=== PATIENT | male | born 1970 | race Caucasian/White ===

== ENCOUNTER 2019-02-15 17:50 | Emergency (ER) | payer SELFPAY ==
[2019-02-15 18:04] VITALS: BP 169/91
== END 2019-02-15 19:00 | disposition left against medical advice (07) ==
LOC: ER 17:50
DX: Z53.21 Procedure and treatment not carried out due to patient leaving prior to being seen by health care provider (principal); S61.219A Laceration without foreign body of unspecified finger without damage to nail, initial encounter; X58.XXXA Exposure to other specified factors, initial encounter

== ENCOUNTER 2020-03-28 14:04 | Emergency (ER) | payer SELFPAY ==
[2020-03-28 14:08] VITALS: BP 147/89
[2020-03-28] MEDS ORDERED: DEXAMETHASONE SOD PHOS INJ 10 MG/1 ML VIAL IM ONE (14:14)
[2020-03-28] MEDS ORDERED: HYDROCODONE/ACETAMINOPHEN 5-325 MG TABLET PO ONE (14:16)
--- NOTE | 2020-03-28 14:21 | ER Document Report ---
HPI - HPI Time Seen by Provider: 03/28/20 14:10 Pain Level: 5 Notes: 49 yr old male presents today with complaints of poison jaren exposure to his right arm and the legs after being exposed to poison oak 4 days ago. Patient states he is tried Benadryl and calamine without relief. Reports he has some itching to his right arm, upper axilla area, right leg. Has not tried any Benadryl today. Symptoms become progressively worse daily. Patient reports pain from itching is 5 out of 5. patient has a history of having acute outbreaks to poison jaren exposure. Denies fevers, chills, chest pain,palpitations, shortness of breath, dyspnea, nausea, vomiting, diarrhea, a bdominal pain, hematuria,blurred vision, double vision, loss of vision, speech changes, LH, dizziness, syncope, headaches, wheezing, ST, URI, neck pain, weakness, bowel or bladder dysfunction, saddle anesthesia, numbness or tingling in bilateral upper or lower extremities equally, muscle paralysis, weakness in bilateral upper or lower extremities equally. MEDICATIONS: I agree with the patient medications as charted by the RN. ALLERGIES: I agree with the allergies as charted by the RN. PAST MEDICAL HISTORY/PAST SURGICAL HISTORY: Reviewed and agree as charted by RN. SOCIAL HISTORY: Reviewed and agree as charted by RN. FAMILY HISTORY: No significant familial comorbid conditions directly related to patient complaint EXAM: Reviewed vital signs as charted by RN. REVIEW OF SYSTEMS:reviewed vital signs by RN CONSTITUTIONAL : Denies fever, chills, or sweats. Denies recent illness. EENT: Denies eye, ear, throat, or mouth pain or symptoms. Denies nasal or sinus congestion or discharge. Denies throat, tongue, or mouth swelling or difficulty swallowing. CARDIOVASCULAR: Denies chest pain. Denies palpitations or racing or irregular heart beat. Denies ankle edema. RESPIRATORY: Denies cough, cold, or chest congestion. Denies shortness of breath, difficulty breathing, or wheezing. GASTROINTESTINAL: Denies abdominal pain or distention. Denies nausea, vomiting, or diarrhea. Denies blood in vomitus, stools, or per rectum. Denies black, tarry stools. Denies constipation. GENITOURINARY: Denies difficulty urinating, painful urination, burning, frequency, blood in urine, or discharge. MUSCULOSKELETAL: Denies back or neck pain or stiffness. Denies joint pain or swelling. SKIN: reports rash. denies lesions or sores. HEMATOLOGIC : Denies easy bruising or bleeding. LYMPHATIC: Denies swollen, enlarged glands. NEUROLOGICAL: Denies confusion or altered mental status. Denies passing out or loss of consciousness. Denies dizziness or lightheadedness. Denies headache. Denies weakness or paralysis or loss of use of either side. Denies problems with gait or speech. Denies sensory loss, numbness, or tingling. Denies seizures. PSYCHIATRIC: Denies anxiety or stress. Denies depression, suicidal ideation, or homicidal ideation. ALL OTHER SYSTEMS REVIEWED AND NEGATIVE. Dictation was performed using [employer] voice recognition software PHYSICAL EXAMINATION: GENERAL: Well-appearing, well-nourished and in no acute distress. HEAD: Atraumatic, normocephalic. EYES: Pupils equal round and reactive to light, extraocular movements intact, sclera anicteric, conjunctiva are normal. ENT: Nares patent, oropharynx clear without exudates. Moist mucous membranes. NECK: Normal range of motion, supple without lymphadenopathy LUNGS: Breath sounds clear to auscultation bilaterally and equal. No wheezes rales or rhonchi. HEART: Regular rate and rhythm without murmurs ABDOMEN: Soft, nontender, nondistended abdomen. No guarding, no rebound. No masses appreciated. Musculoskeletal: Normal range of motion, no pitting or edema. No cyanosis. NEUROLOGICAL: Cranial nerves grossly intact. Normal speech, normal gait. Normal sensory, motor exams PSYCH: Normal mood, normal affect. SKIN: Warm, Dry, normal turgor, no rashes or lesions noted. Macular papular rash in a leaf-like pattern on the right forearm with small blisters. same findings to lateral aspect of right knee. Mild erythema, induration warm to touch to right forearm approximately 0.5 cm around blistering rash. Radial pulses +2 bilaterally and equally. Filter Press Tender + 2 BUE equally. Negative kanavels sign. No vascular compromise. Motor and sensory function of ulnar, radial, medial nerves intact bilaterally and equally. - CONSTITUTIONAL Constitutional: DENIES: Fever, Chills - REPRODUCTIVE Reproductive: DENIES: : - MUSCULOSKELETAL Musculoskeletal: DENIES: Extremity pain Past Medical History - General Information source: Patient - Social History Smoking Status: Current Every Day Smoker Chew tobacco use (# tins/day): No Frequency of alcohol use: Heavy Drug Abuse: None Family History: Reviewed & Not Pertinent Patient has homicidal ideation: No Past Surgical History: Reports: Hx Orthopedic Surgery - bilat ankle - Immunizations Hx Diphtheria, Pertussis, Tetanus Vaccination: Yes Vertical Provider Document - CONSTITUTIONAL Agree With Documented VS: Yes Exam Limitations: No Limitations General Appearance: WD/WN - INFECTION CONTROL TRAVEL OUTSIDE OF THE [place] IN LAST 30 DAYS: No Course - Re-evaluation Re-evalutation: 03/28/20 14:32 Afebrile vital stable no distress. Nurses notes reviewed. Patient given 10 mg of Decadron IM. Advised to take prednisone, antibiotics and ointment cream as directed. Advised to not itch rash. Advised take cold showers. Follow-up with primary care provider in the next 24 to 48 hours. Please avoid scratching. After performing a Medical Screening Examination, I estimate there is LOW risk for any life threatening rash. At this time the patient looks extremely well and there are no signs of systemic infection, however this may change at any time and the rash may change. I have reevaluated this patient multiple times and no significant life threatening changes are noted. The patient and I have discussed the diagnosis and risks, and we agree with discharging home with close follow-up with the understanding that symptoms and presentations can change. We also discussed returning to the Emergency Department immediately if new or worsening symptoms occur. We have discussed the symptoms which are most concerning (e.g., changing or worsening pain, fever, numbness, weakness, cool or painful digits) that necessitate immediate return. - Vital Signs Vital signs: Temp Pulse Resp BP Pulse Ox 98.5 F 107 H 16 147/89 H 98 03/28/20 14:07 03/28/20 14:07 03/28/20 14:07 03/28/20 14:07 03/28/20 14:07 Discharge - Discharge Clinical Impression: Poison jaren dermatitis Condition: Stable Disposition: HOME, SELF-CARE Instructions: Corticosteroid Medication ([facility]), Contact Dermatitis ([facility]), Topical Steroid Cream or Ointment ([facility]), Clindamycin ([facility]) Additional Instructions: Your being seen today for poison jaren. It appears that some of your rash turned in to a little bit of a cellulitis we will treat you with antibiotics along with steroids. You were given a shot of Decadron to help with the inflammation. Return for any difficulty breathing, vomiting, passing out, or any other symptoms that are worrisome to you. You need to take the antibiotics as prescribed. Do not stop even if the rash goes away until you have completed all the antibiotics. The area of redness was traced out here in the emergency department with a marking pen. You need to return to emergency department if the redness spreads outside of this area by more than 2 cm in any direction. You should also return if you develop fevers with temperature greater than 101, persistent vomiting, worsening pain, or have any other symptoms that are concerning to you. Take [id number] Tylenol and ibuprofen during control as needed Return immediately for any new or worsening symptoms. Follow up with primary care provider, call tomorrow to make followup appointment. Prescriptions: Triamcinolone Acetonide [Aristocort 0.1% Cream] 1 applic TP BID #1 tub Clindamycin HCl 300 mg PO Q6H #28 capsule Prednisone [Deltasone 20 mg Tablet] 3 tab PO DAILY 5 Days #15 tablet Forms: Return to Work Referrals: BRIAN MONROY [Primary Care Provider] - Follow up as needed ANKIT TOMAS MD [ACTIVE STAFF] - Follow up as needed
== END 2020-03-28 14:23 | disposition home or self-care (01) ==
LOC: ER 14:04
DX: L23.7 Allergic contact dermatitis due to plants, except food (principal); F17.200 Nicotine dependence, unspecified, uncomplicated
CPT/HCPCS: 99284; 96372; J1100

== ENCOUNTER 2020-04-05 16:29 | Observation (INO) | payer SELFPAY ==
[2020-04-05] MEDS ORDERED: KETOROLAC TROMETHAMINE INJ/PF 30 MG/1 ML SDV IV ONE (17:34)
[2020-04-05] MEDS ORDERED: DEXAMETHASONE SOD PHOS INJ 10 MG/1 ML VIAL IV ONE (17:34)
--- NOTE | 2020-04-05 17:52 | ER Document Report ---
ED Skin Rash/Insect Bite/Abscs - General Chief Complaint: Skin Problem Stated Complaint: SKIN ISSUE Time Seen by Provider: 04/05/20 17:34 Notes: Patient is a 49-year-old male who presents emergency department with a chief complaint of rash. Patient reports he was seen here last week and diagnosed with poison anca. Patient reports 3 days prior to arriving to the emergency department he was exposed to poison anca while working in the yard. Patient reports that he was placed on steroids, a steroid cream which only lasted 2 days and clindamycin. He states since then the rash has continued to spread throughout his torso, underneath the arms, and groin area. Patient reports only a small spot to his right knee. Patient denies fever but does report some chills. Patient reports intense itching. TRAVEL OUTSIDE OF THE [place] IN LAST 30 DAYS: No - Related Data Allergies/Adverse Reactions: ampicillin [Ampicillin] Allergy (Verified 04/05/20 17:20) Past Medical History - General Information source: Patient - Social History Smoking Status: Current Every Day Smoker Chew tobacco use (# tins/day): No Frequency of alcohol use: None Drug Abuse: None Lives with: Family Family History: Reviewed & Not Pertinent Patient has homicidal ideation: No - Past Medical History Cardiac Medical History: Reports: None Pulmonary Medical History: Reports: None EENT Medical History: Reports: None Neurological Medical History: Reports: None Endocrine Medical History: Reports: None Renal/ Medical History: Reports: None Malignancy Medical History: Reports None GI Medical History: Reports: None Musculoskeletal Medical History: Reports None Skin Medical History: Reports None Psychiatric Medical History: Reports: None Traumatic Medical History: Reports: None Infectious Medical History: Reports: None Past Surgical History: Reports: Hx Orthopedic Surgery - bilat ankle - Immunizations Hx Diphtheria, Pertussis, Tetanus Vaccination: Yes Review of Systems - Review of Systems Constitutional: No symptoms reported EENT: No symptoms reported Cardiovascular: No symptoms reported Respiratory: No symptoms reported Gastrointestinal: No symptoms reported Genitourinary: No symptoms reported Male Genitourinary: No symptoms reported Musculoskeletal: No symptoms reported Skin: See HPI Hematologic/Lymphatic: No symptoms reported Neurological/Psychological: No symptoms reported Physical Exam - Vital signs Vitals: Temp Pulse Resp BP Pulse Ox 97.4 F 93 20 139/82 H 99 04/05/20 16:38 04/05/20 16:38 04/05/20 16:38 04/05/20 16:38 04/05/20 16:38 Interpretation: Normal - Notes Notes: GENERAL: Well-appearing, well-nourished and in no acute distress. HEAD: Atraumatic, normocephalic. EYES: Pupils equal round and reactive to light, extraocular movements intact, sclera anicteric, conjunctiva are normal. ENT: Moist mucous membranes. NECK: Normal range of motion, supple without lymphadenopathy or JVD. LUNGS: Breath sounds clear to auscultation bilaterally and equal. No wheezes rales or rhonchi. HEART: Regular rate and rhythm without murmurs, rubs or gallops. ABDOMEN: Soft, nontender, normoactive bowel sounds. No guarding, no rebound. No masses appreciated. BACK: No cervical, thoracic, lumbar midline tenderness. No saddle anesthesia, normal distal neurovascular exam. GENITOURINARY: Deferred. EXTREMITIES: Normal range of motion, no pitting or edema. No clubbing or cyanosis. NEUROLOGICAL: Cranial nerves II through XII grossly intact. Normal speech, normal gait. PSYCH: Normal mood, normal affect. SKIN: Patient has scattered vesicles, cracked skin, erythema to the torso. Underneath bilateral arms (axilla) patient skin appears raw and irritated, appears moist. No odor. Course - Re-evaluation Re-evalutation: 04/05/20 17:51 I do suspect that the severity of the dermatitis will need a longer course of steroids. I will initiate an IV, do basic labs, give pain medication. Will reevaluate. Patient CBC showed an elevated white count of 25. Lab does have to, and redraw the CMP. I did order blood cultures. The charge nurse was made aware that the patient will be seen by a provider once placed in a room versus staying in triage. - Vital Signs Vital signs: Temp Pulse Resp BP Pulse Ox 97.4 F 93 20 139/82 H 99 04/05/20 16:38 04/05/20 16:38 04/05/20 16:38 04/05/20 16:38 04/05/20 16:38 - Laboratory Result Diagrams: 04/05/20 17:45 04/05/20 17:45 Laboratory results interpreted by me: 04/05/20 17:45 WBC 25.7 H RBC 5.88 H Hgb 17.8 H Hct 52.9 H RDW 14.3 H Plt Count 479 H Band Neutrophils % 1 L Lymphocytes % (Manual) 10 L Eosinophils % (Manual) 9 H Abs Neuts (Manual) 19.5 H Absolute Eos (Manual) 2.3 H Discharge - Discharge Clinical Impression: Dermatitis Additional Instructions: Poison Anca Poison anca and poison oak can cause an itchy rash. This is called contact dermatitis. It's an allergy to an oil in the plant's leaves. The oil can be spread from clothing to skin, from pets to humans, or from one spot on the body to another. Washing thoroughly with soap immediately after exposure can prevent the rash. (Clothing should be washed as well.) If the oil is not removed, an itchy rash develops a few days after the exposure. Blisters may develop. Two to three weeks may be required for healing. Generally, treatment consists of: (1) an immediate thorough washing with soap to remove the oil, (2) application of a cortisone cream, and (3) antihistamines for itching. If the reaction is particularly severe, oral cortisone medicine may be required. If there are oozing areas, these can be soaked in epsom salts or Alvin's solution. Call the doctor if the rash worsens despite treatment, or if signs of infection occur such as spreading redness, red streaks, swollen glands, swelling, or fever.
[2020-04-05 18:11] LABS: HEMATOCRIT 52.9 % (37.9-51.0); HEMOGLOBIN 17.8 g/dL (13.5-17.0); MEAN CORPUSCULAR HEMOGLOBIN 30.3 pg (27.0-33.4); MEAN CORPUSCULAR HGB CONC 33.7 g/dL (32.0-36.0); MEAN CORPUSCULAR VOLUME 90 fl (80-97); PLATELET COUNT 479 10^3/uL (150-450); RED BLOOD COUNT 5.88 10^6/uL (4.35-5.55); RED CELL DISTRIBUTION WIDTH 14.3 % (11.5-14.0); WHITE BLOOD COUNT 25.7 10^3/uL (4.0-10.5)
[2020-04-05 18:59] LABS: ABSOLUTE LYMPHOCYTES# (MANUAL) 2.6 10^3/uL (0.5-4.7); ABSOLUTE MONOCYTES # (MANUAL) 1.3 10^3/uL (0.1-1.4); BAND NEUTROPHILS % (MANUAL) 1 % (3-5); BASOPHILS % (MANUAL) 0 % (0-2); EOSINOPHILS % (MANUAL) 9 % (0-6); LYMPHOCYTES % (MANUAL) 10 % (13-45); MONOCYTES % (MANUAL) 5 % (3-13); PLATELET COMMENT INCREASED; POIKILOCYTOSIS SLIGHT; SEGMENTED NEUTROPHILS % (MAN) 75 % (42-78); TEAR DROP CELLS SLIGHT; TOTAL CELLS COUNTED 100
[2020-04-05 20:04] LABS: ALBUMIN 3.8 g/dL (3.5-5.0); ALKALINE PHOSPHATASE 97 U/L (38-126); ANION GAP 12 (5-19); ASPARTATE AMINO TRANSFERASE 20 U/L (17-59); BILIRUBIN,DIRECT 0.2 mg/dL (0.0-0.4); BILIRUBIN,TOTAL 1.1 mg/dL (0.2-1.3); BLOOD UREA NITROGEN 18 mg/dL (7-20); CARBON DIOXIDE 24 mmol/L (22-30); CHLORIDE 100 mmol/L (98-107); GLUCOSE 128 mg/dL (75-110); POTASSIUM 3.9 mmol/L (3.6-5.0)
--- NOTE | 2020-04-05 20:28 | ER Document Report ---
ED Medical Screen (RME) - General Chief Complaint: Skin Problem Stated Complaint: SKIN ISSUE Time Seen by Provider: 04/05/20 17:34 Notes: Patient is a 49-year-old male who presents emergency department with a chief c omplaint of rash. Patient reports he was seen here last week and diagnosed with poison anca. Patient reports 3 days prior to arriving to the emergency department he was exposed to poison anca while working in the yard. Patient reports that he was placed on steroids, a steroid cream which only lasted 2 days and clindamycin. He states since then the rash has continued to spread throughout his torso, underneath the arms, and groin area. Patient reports only a small spot to his right knee. Patient denies fever but does report some chills. Patient reports intense itching. TRAVEL OUTSIDE OF THE [place] IN LAST 30 DAYS: No - Related Data Allergies/Adverse Reactions: ampicillin [Ampicillin] Allergy (Verified 04/05/20 17:20) Past Medical History - Social History Chew tobacco use (# tins/day): No Frequency of alcohol use: None Drug Abuse: None Past Surgical History: Reports: Hx Orthopedic Surgery - bilat ankle - Immunizations Hx Diphtheria, Pertussis, Tetanus Vaccination: Yes Physical Exam - Vital signs Vitals: Temp Pulse Resp BP Pulse Ox 97.4 F 93 20 139/82 H 99 04/05/20 16:38 04/05/20 16:38 04/05/20 16:38 04/05/20 16:38 04/05/20 16:38 Course - Re-evaluation Re-evalutation: 04/05/20 20:27 Patient has an assortment of scattered dry areas, erythema, dried pustules on the torso. Patient has significant tenderness and erythema underneath bilateral axillas. Due to the extent of the patient's rash I did order basic labs in triage. It was noted that patient had an elevated white count. He was placed in a private room to be seen by a provider. I have greeted and performed a rapid initial assessment of this patient. A comprehensive ED assessment and evaluation of the patient, analysis of test results and completion of the medical decision making process will be conducted by additional ED providers. - Vital Signs Vital signs: Temp Pulse Resp BP Pulse Ox 97.4 F 93 20 139/82 H 99 04/05/20 16:38 04/05/20 16:38 04/05/20 16:38 04/05/20 16:38 04/05/20 16:38 - Laboratory Result Diagrams: 04/05/20 17:45 04/05/20 19:25 Laboratory results interpreted by me: 04/05/20 04/05/20 17:45 19:25 WBC 25.7 H RBC 5.88 H Hgb 17.8 H Hct 52.9 H RDW 14.3 H Plt Count 479 H Band Neutrophils % 1 L Lymphocytes % (Manual) 10 L Eosinophils % (Manual) 9 H Abs Neuts (Manual) 19.5 H Absolute Eos (Manual) 2.3 H Sodium 135.6 L Glucose 128 H Total Protein 6.0 L Doctor's Discharge - Discharge Clinical Impression: Dermatitis Additional Instructions: Poison Anca Poison anca and poison oak can cause an itchy rash. This is called contact dermatitis. It's an allergy to an oil in the plant's leaves. The oil can be spread from clothing to skin, from pets to humans, or from one spot on the body to another. Washing thoroughly with soap immediately after exposure can prevent the rash. (Clothing should be washed as well.) If the oil is not removed, an itchy rash develops a few days after the exposure. Blisters may develop. Two to three weeks may be required for healing. Generally, treatment consists of: (1) an immediate thorough washing with soap to remove the oil, (2) application of a cortisone cream, and (3) antihistamines for itching. If the reaction is particularly severe, oral cortisone medicine may be required. If there are oozing areas, these can be soaked in epsom salts or Alvin's solution. Call the doctor if the rash worsens despite treatment, or if signs of infection occur such as spreading redness, red streaks, swollen glands, swelling, or fever.
[2020-04-05] MEDS ORDERED: DIPHENHYDRAMINE HCL 50 MG/ML VIAL IV ONE (21:11)
[2020-04-05] MEDS ORDERED: DOXEPIN HCL 25 MG CAPSULE PO ONE ×2 (21:33→23:31)
[2020-04-05] MEDS ORDERED: FLUCONAZOLE 100 MG TABLET PO ONE (21:34)
--- NOTE | 2020-04-05 21:40 | ER Document Report ---
ED General - General Chief Complaint: Skin Problem Stated Complaint: SKIN ISSUE Time Seen by Provider: 04/05/20 17:34 Notes: 49-year-old male no significant past medical history presents with approximately 1 week of severe worsening erythematous pruritic painful rash over torso, bilateral arms, face and right knee. Patient was working outside in an area that had known poison anca prior to symptom onset. Patient started on low-dose of p.o. steroids which he completed without relief. No improvement with topical steroids. Patient denies any fever, dizziness, vomiting, discharge, change in vision, diabetes, HIV, immunocompromise history TRAVEL OUTSIDE OF THE [place] IN LAST 30 DAYS: No - Related Data Allergies/Adverse Reactions: ampicillin [Ampicillin] Allergy (Verified 04/05/20 17:20) Past Medical History - General Information source: Patient - Social History Smoking Status: Current Every Day Smoker Chew tobacco use (# tins/day): No Frequency of alcohol use: None Drug Abuse: None Family History: Reviewed & Not Pertinent Patient has homicidal ideation: No Past Surgical History: Reports: Hx Orthopedic Surgery - bilat ankle - Immunizations Hx Diphtheria, Pertussis, Tetanus Vaccination: Yes Review of Systems - Review of Systems Notes: REVIEW OF SYSTEMS: CONSTITUTIONAL : Denies fever, chills, or sweats. EENT: Denies recent cold/sinus symptoms, denies throat pain CARDIOVASCULAR: Denies chest pain, SARAH RESPIRATORY: Denies cough, denies shortness of breath. GASTROINTESTINAL: Denies abdominal pain, nausea/vomiting. GENITOURINARY: Denies difficulty urinating, painful urination. MUSCULOSKELETAL: Denies neck pain, back pain. SKIN: + rash or skin lesions. HEMATOLOGIC : Denies easy bruising or bleeding. LYMPHATIC: Denies swollen, enlarged glands. NEUROLOGICAL: Denies headache, denies change in gait. PSYCHIATRIC: Denies anxiety or stress or depression. Physical Exam - Vital signs Vitals: Temp Pulse Resp BP Pulse Ox 97.4 F 93 20 139/82 H 99 04/05/20 16:38 04/05/20 16:38 04/05/20 16:38 04/05/20 16:38 04/05/20 16:38 - Notes Notes: PHYSICAL EXAMINATION: GENERAL: Well-appearing, well-nourished, talkative pleasant middle-aged man appearing stated age appearing uncomfortable from rash pruritus but nontoxic appearance and in no acute distress HEAD: Atraumatic, normocephalic. EYES: Pupils equal round and appropriate constriction, sclera anicteric, conjunctiva are normal. ENT: nares patent, moist mucous membranes. NECK: Normal range of motion, supple without lymphadenopathy LUNGS: Breath sounds clear to auscultation bilaterally and equal. No wheezes rales or rhonchi. HEART: Regular rate and rhythm without murmurs ABDOMEN: Soft, nontender, no guarding, no masses, no CVAT EXTREMITIES: Normal range of motion, no pitting or edema. No cyanosis. NEUROLOGICAL: Awake, alert, conversing appropriately, moves all extremities s pontaneously. PSYCH: Normal mood, normal affect. SKIN: Warm, Dry, normal turgor, confluent erythematous blanching rash over most of lower abdomen bilaterally sparing intertriginous area below pannus with macular rash with areas of confluence over bilateral arms. No vesicles, no discharge, no purulence. Small areas of the rash appear to be mildly edematous with increased warmth compared to other areas of rash including over left axilla and the lateral right lower abdomen. Rash also mildly involving medial proximal thigh bilaterally sparing groin area, this area of rash has excessive moisture but no discharge. Some areas of the mesh have dried and appearing mildly scaly and flaky with no impetiginous appearance. Mild erythema of bilateral lower forehead and upper cheeks without discharge, normal conjunctiva, no edema in this area. Flaky erythematous dry blanching rash on right knee. Course - Re-evaluation Re-evalutation: 04/05/20 21:49 Rash consistent with severe atopic dermatitis from poison anca/oak/sumac, but some areas with excessive moisture. But they could have fungal superinfection and small areas appear equivocally cellulitic. Patient had labs drawn in triage which showed leukocytosis with small bands and neutrophil predominance but CBC is hemoconcentrated. This could represent severe atopic dermatitis response or cellulitis, but likely exaggerated by mild dehydration. Patient's vitals are normal, patient is very well-appearing, no signs of disseminated shingles, SJS, or TEN. Given the patient's indolent course and general well appearance without systemic symptoms or signs of organ dysfunction less likely eczema herpeticum, but will defer this to inpatient team to reevaluate if clinical picture should change. Patient appropriate for inpatient observation given extent of rash and mild dehydration. 04/05/20 22:27 Patient is a surgical history of appendectomy approximately 43 years ago and 2-3 left inguinal hernia repair surgeries greater than 10 years ago, current 1 pack/day smoker times 20 years, no alcohol or other drug use, mother had htn and dm and father had htn. pt accepted to observation by Dr. Meade. - Vital Signs Vital signs: Temp Pulse Resp BP Pulse Ox 98.2 F 63 18 140/71 H 100 04/05/20 22:00 04/05/20 22:00 04/05/20 22:00 04/05/20 22:00 04/05/20 22:00 - Laboratory Result Diagrams: 04/05/20 17:45 04/05/20 19:25 Laboratory results interpreted by me: 04/05/20 04/05/20 17:45 19:25 WBC 25.7 H RBC 5.88 H Hgb 17.8 H Hct 52.9 H RDW 14.3 H Plt Count 479 H Band Neutrophils % 1 L Lymphocytes % (Manual) 10 L Eosinophils % (Manual) 9 H Abs Neuts (Manual) 19.5 H Absolute Eos (Manual) 2.3 H Sodium 135.6 L Glucose 128 H Total Protein 6.0 L Discharge - Discharge Clinical Impression: Dermatitis, Dehydration Cellulitis Qualifiers: Site of cellulitis: unspecified site Qualified Code(s): L03.90 - Cellulitis, unspecified Disposition: ADMITTED OBSERVATION Admitting Provider: Deshaun (Hospitalist) Unit Admitted: Medical Floor Additional Instructions: Poison Anca Poison anca and poison oak can cause an itchy rash. This is called contact dermatitis. It's an allergy to an oil in the plant's leaves. The oil can be spread from clothing to skin, from pets to humans, or from one spot on the body to another. Washing thoroughly with soap immediately after exposure can prevent the rash. (Clothing should be washed as well.) If the oil is not removed, an itchy rash develops a few days after the exposure. Blisters may develop. Two to three weeks may be required for healing. Generally, treatment consists of: (1) an immediate thorough washing with soap to remove the oil, (2) application of a cortisone cream, and (3) antihistamines for itching. If the reaction is particularly severe, oral cortisone medicine may be required. If there are oozing areas, these can be soaked in epsom salts or Alvin's solution. Call the doctor if the rash worsens despite treatment, or if signs of infection occur such as spreading redness, red streaks, swollen glands, swelling, or fever.
[2020-04-05] MEDS: CLINDAMYCIN 600 MG/D5W RTU 600 MG/50 ML RTUPB IV SCH (22:01)
[2020-04-05] MEDS: NORMAL SALINE 1000 ML 1,000 ML IV PRN (22:01)
[2020-04-05 23:18] LABS: HEMATOCRIT 46.9 % (37.9-51.0); MEAN CORPUSCULAR HEMOGLOBIN 30.3 pg (27.0-33.4); MEAN CORPUSCULAR HGB CONC 34.2 g/dL (32.0-36.0); MEAN CORPUSCULAR VOLUME 89 fl (80-97); PLATELET COUNT 426 10^3/uL (150-450); RED BLOOD COUNT 5.29 10^6/uL (4.35-5.55)
[2020-04-05] MEDS ORDERED: MAG HYDROX/AL HYDROX/SIMETH SUSP 30 ML UDCUP PO PRN (23:25)
[2020-04-05] MEDS ORDERED: PROMETHAZINE HCL INJ 25 MG/1 ML VIAL IV PRN (23:25)
[2020-04-05] MEDS ORDERED: MAGNESIUM HYDROXIDE SUSP 30 ML UDCUP PO PRN (23:25)
[2020-04-05] MEDS ORDERED: ACETAMINOPHEN 325 MG TABLET PO PRN (23:28)
[2020-04-05] MEDS ORDERED: HYDRALAZINE HCL INJ/PF 20 MG/1 ML SDV IV PRN (23:28)
[2020-04-05] MEDS ORDERED: MORPHINE SULFATE 10 MG/ML INJ IV PRN (23:28)
[2020-04-05] MEDS ORDERED: GUAIFENESIN SYRP 200 MG/10 ML UDC PO PRN (23:28)
[2020-04-05] MEDS ORDERED: MELATONIN 5 MG TABLET PO PRN (23:28)
[2020-04-05] MEDS ORDERED: LORAZEPAM INJ 2 MG/1 ML VIAL IV PRN (23:28)
[2020-04-05] MEDS ORDERED: NICOTINE 21 MG/24 HR PATCH.TD24 TD PRN (23:28)
[2020-04-05 23:38] LABS: ABSOLUTE LYMPHOCYTES# (MANUAL) 0.6 10^3/uL (0.5-4.7); ABSOLUTE MONOCYTES # (MANUAL) 0.6 10^3/uL (0.1-1.4); BASOPHILS % (MANUAL) 0 % (0-2); EOSINOPHILS % (MANUAL) 8 % (0-6); LYMPHOCYTES % (MANUAL) 3 % (13-45); MONOCYTES % (MANUAL) 3 % (3-13); SEGMENTED NEUTROPHILS % (MAN) 86 % (42-78); TOTAL CELLS COUNTED 100
[2020-04-05 23:42] LABS: ANISOCYTOSIS SLIGHT; PLATELET COMMENT ADEQUATE; TEAR DROP CELLS SLIGHT
[2020-04-05 23:43] LABS: POIKILOCYTOSIS SLIGHT
[2020-04-05] MEDS ORDERED: FAMOTIDINE 20 MG TABLET PO ONE (23:45)
[2020-04-06] MEDS: NORMAL SALINE 1000 ML 1,000 ML IV PRN (00:20)
[2020-04-06] MEDS: DEXAMETHASONE SOD PHOSPHATE INJ 4 MG/1 ML VIAL IV SCH ×2 (02:18→09:47)
[2020-04-06] MEDS: DEXTROSE 5%-LACTATED RINGERS 1,000 ML IV PRN ×2 (02:20→08:17)
[2020-04-06 04:30] LABS: HEMATOCRIT 42.3 % (37.9-51.0); HEMOGLOBIN 14.6 g/dL (13.5-17.0); MEAN CORPUSCULAR HEMOGLOBIN 30.5 pg (27.0-33.4); MEAN CORPUSCULAR HGB CONC 34.5 g/dL (32.0-36.0); MEAN CORPUSCULAR VOLUME 89 fl (80-97); PLATELET COUNT 364 10^3/uL (150-450); RED BLOOD COUNT 4.78 10^6/uL (4.35-5.55); WHITE BLOOD COUNT 12.5 10^3/uL (4.0-10.5)
[2020-04-06 04:48] LABS: ANION GAP 6 (5-19); BLOOD UREA NITROGEN 13 mg/dL (7-20); CALCIUM 8.4 mg/dL (8.4-10.2); CARBON DIOXIDE 21 mmol/L (22-30); CHLORIDE 109 mmol/L (98-107); GLUCOSE 198 mg/dL (75-110)
[2020-04-06 04:54] LABS: POTASSIUM 4.9 mmol/L (3.6-5.0)
[2020-04-06] MEDS: HEPARIN SOD (PORCINE) 5,000 UNIT/ML 1 ML VIAL SUBCUT SCH ×3 (05:17→21:10)
[2020-04-06] MEDS: CLINDAMYCIN 600 MG/D5W RTU 600 MG/50 ML RTUPB IV SCH ×2 (05:18→13:07)
--- NOTE | 2020-04-06 06:28 | PDOC H&P ---
History of Present Illness Admission Date/PCP: 04/05/20 22:35 No local PCP Patient complains of: Rash History of Present Illness: YOVANNY LÓPEZ is a 49 year old male who presented emergency room with a one- week history of a poison jaren rash. 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 The rash is extremely pruritic and is not improving despite treatment with oral and topical steroid preparations which he is received on previous visits. He denies other associated or accompanying signs and symptoms. He denies prior similar episodes. He has not identified any additional aggravating or ameliorating factors for his rash. In the emergency room he was noted to have an extensive rash of atopic dermatitis with areas of weeping and crusting. He was further noted to have a leukocytosis of 25,000 with 1% bands that was so concerning to the emergency room physician that she demanded that he be admitted for observation. Patient was subsequently admitted to observation status for further evaluation and treatment. Past Medical History Cardiac Medical History: Denies: Atrial Fibrillation, Coronary Artery Disease, DVT, Myocardial Infarction, Hyperlipidema, Hypertension, Pulmonary Embolism Pulmonary Medical History: Denies: Asthma, Chronic Obstructive Pulmonary Disease (COPD) EENT Medical History: Denies: Cataracts, Ears - Hearing aids Neurological Medical History: Denies: Hemorrhagic CVA, Ischemic CVA, Seizures Endocrine Medical History: Denies: Diabetes Mellitus Type 1, Diabetes Mellitus Type 2, Hyperthyroidism, Hypothyroidism, Obesity Renal/ Medical History: Denies: Chronic Kidney Disease, Nephrolithiasis Malignancy Medical History: Reports: None GI Medical History: Denies: Cirrhosis, Crohn's Disease, Gastroesophageal Reflux Disease, Hepatitis, Peptic Ulcer Disease, Ulcerative Colitis Musculoskeltal Medical History: Denies: Arthritis, Fibromyalgia, Gout Skin Medical History: Denies: Eczema, Psoriasis Psychiatric Medical History: Reports: Tobacco Dependency Denies: Alcohol Dependency, Substance Abuse Traumatic Medical History: Reports: None Hematology: Denies: Anemia, Bleeding Tendencies Infectious Medical History: Reports: None Past Surgical History Past Surgical History: Reports: Orthopedic Surgery - bilat ankle Social History Information Source: Patient Lives with: Homeless Smoking Status: Current Every Day Smoker Electronic Cigarette use?: No Frequency of Alcohol Use: None Hx Recreational Drug Use: No Drugs: None Hx Prescription Drug Abuse: No - Advance Directive Resuscitation Status: Full Code Surrogate healthcare decision maker:: Delfin Barba Family History Family History: DM, Hypertension. denies: CAD, Malignancy Parental Family History Reviewed: Yes Children Family History Reviewed: No Sibling(s) Family History Reviewed.: Yes Medication/Allergy Home Medications: Clindamycin HCl 300 mg PO Q6H #28 capsule 03/28/20 Prednisone [Deltasone 20 mg Tablet] 3 tab PO DAILY 5 Days #15 tablet 03/28/20 Triamcinolone Acetonide [Aristocort 0.1% Cream] 1 applic TP BID #1 tub 03/28/20 Allergies/Adverse Reactions: ampicillin [Ampicillin] Allergy (Verified 04/05/20 17:20) Review of Systems Constitutional: ABSENT: chills, fever(s) Eyes: ABSENT: visual disturbances, other - Eye pain Ears: ABSENT: hearing changes, other - UTI Nose, Mouth, and Throat: ABSENT: headache(s), sore throat Cardiovascular: ABSENT: chest pain, palpitations Respiratory: ABSENT: cough, dyspnea Gastrointestinal: ABSENT: abdominal pain, constipation, diarrhea, nausea, vomiting Genitourinary: ABSENT: dysuria, hematuria Musculoskeletal: ABSENT: back pain, joint swelling Integumentary: ABSENT: pruritus, rash Neurological: ABSENT: confusion, convulsions, focal weakness, memory loss, syncope Psychiatric: ABSENT: anxiety, depression Endocrine: ABSENT: cold intolerance, heat intolerance Hematologic/Lymphatic: ABSENT: easy bleeding, easy bruising Allergic/Immunologic: ABSENT: seasonal rhinorrhea Physical Exam Vital Signs: Temp Pulse Resp BP Pulse Ox 98.2 F 63 18 140/71 H 100 04/05/20 22:00 04/05/20 22:00 04/05/20 22:00 04/05/20 22:00 04/05/20 22:00 Intake & Output 04/03/20 04/04/20 04/05/20 23:59 23:59 23:59 Weight 104.2 kg General appearance: PRESENT: cooperative, disheveled, other - Moderate distress and due to pruritus Head exam: PRESENT: atraumatic, normocephalic Eye exam: PRESENT: conjunctiva pink. ABSENT: conjunctival injection, scleral icterus Ear exam: PRESENT: normal external ear exam. ABSENT: bleeding, drainage Mouth exam: PRESENT: dry mucosa, neck supple Neck exam: ABSENT: thyromegaly, tracheal deviation Respiratory exam: PRESENT: clear to auscultation henrry, symmetrical, unlabored Cardiovascular exam: PRESENT: RRR. ABSENT: clicks, gallop, rubs Pulses: PRESENT: normal radial pulses, normal dorsalis pedis pul Vascular exam: PRESENT: normal capillary refill. ABSENT: pallor GI/Abdominal exam: PRESENT: normal bowel sounds, soft. ABSENT: tenderness Rectal exam: PRESENT: deferred Extremities exam: ABSENT: joint swelling, pedal edema Musculoskeletal exam: ABSENT: deformity, dislocation Neurological exam: PRESENT: alert, oriented to person, oriented to place, oriented to time, oriented to situation, CN II-XII grossly intact. ABSENT: motor sensory deficit Psychiatric exam: PRESENT: appropriate affect, normal mood Skin exam: PRESENT: dry, intact, rash - Generalized plant contact dermatitis involving torso, face, neck and all extremities., warm. ABSENT: jaundice, urticaria Results Laboratory Results: 04/05/20 17:45 04/05/20 19:25 04/05/20 04/05/20 04/05/20 17:45 17:45 19:25 WBC 25.7 H RBC 5.88 H Hgb 17.8 H Hct 52.9 H MCV 90 MCH 30.3 MCHC 33.7 RDW 14.3 H Plt Count 479 H Seg Neutrophils % Not Reportable Sodium Cancelled 135.6 L Potassium Cancelled 3.9 Chloride Cancelled 100 Carbon Dioxide Cancelled 24 Anion Gap Cancelled 12 BUN Cancelled 18 Creatinine Cancelled 1.23 Est GFR ( Amer) Cancelled > 60 Est GFR (Non-Af Amer) Cancelled Glucose Cancelled 128 H Lactic Acid Calcium Cancelled 9.0 Total Bilirubin Cancelled 1.1 AST Cancelled 20 Alkaline Phosphatase Cancelled 97 Total Protein Cancelled 6.0 L Albumin Cancelled 3.8 04/05/20 20:54 WBC RBC Hgb Hct MCV MCH MCHC RDW Plt Count Seg Neutrophils % Sodium Potassium Chloride Carbon Dioxide Anion Gap BUN Creatinine Est GFR ( Amer) Est GFR (Non-Af Amer) Glucose Lactic Acid 2.0 Calcium Total Bilirubin AST Alkaline Phosphatase Total Protein Albumin Assessment and Plan - Diagnosis (1) Plant irritant contact dermatitis Is this a current diagnosis for this admission?: Yes (2) Pruritus Is this a current diagnosis for this admission?: Yes (3) Leukocytosis, unspecified Qualifiers: Leukocytosis type: unspecified Qualified Code(s): D72.829 - Elevated white blood cell count, unspecified Is this a current diagnosis for this admission?: Yes (4) Tobacco use disorder, continuous Is this a current diagnosis for this admission?: Yes - Plan Summary Summary: Patient was admitted observation status on the medical floor where he will receive routine supportive and symptomatic cares. He will be treated with IV fluids utilizing D5LR at 167 mL/h. He will receive dexamethasone intravenously with an initial burst dose protocol and conversion to oral therapy. He will receive doxepin 50 mg p.o. every 12 hours for pruritus. He will receive mo rphine sulfate 2 to 4 mg IV every 2 hours as needed for pain. He will receive Ativan 1 mg IV every 4 hours as needed for anxiety or restlessness. Smoking cessation is advised and counseled briefly at the bedside. A nicotine replacement patch is available for the patient's use if desired. CBCs, m etabolic profiles and additional laboratory and/or radiographic evaluations will be obtained as needed. - Time Time Spent with patient: 15-24 minutes Smoking Cessation Education: 3 to 10 minutes Medications reviewed and adjusted accordingly: Yes Anticipated Discharge Disposition: Home, Self Care Anticipated Discharge Timeframe: within 24 hours - Inpatient Certification Based on my medical assessment, after consideration of the patient's comorbidities, presenting symptoms, or acuity I expect that the services needed warrant INPATIENT care.: No I certify that my determination is in accordance with my understanding of Medicare's requirements for reasonable and necessary INPATIENT services [42 CFR 412.3e].: No
[2020-04-06] MEDS ORDERED: DIPHENHYDRAMINE HCL 25 MG CAPSULE PO PRN (09:33)
[2020-04-06] MEDS ORDERED: KETOROLAC TROMETHAMINE INJ/PF 30 MG/1 ML SDV IV PRN (09:36)
[2020-04-06] MEDS: DOXEPIN HCL 25 MG CAPSULE PO SCH ×2 (09:46→21:09)
[2020-04-06] MEDS: DOCUSATE SODIUM 100 MG CAPSULE PO SCH ×3 (09:46→17:33)
[2020-04-06] MEDS: FAMOTIDINE 20 MG TABLET PO SCH ×2 (09:46→21:10)
[2020-04-06] MEDS ORDERED: PROMETHAZINE HCL INJ 25 MG/1 ML VIAL IV PRN (10:00)
[2020-04-06] MEDS: DEXAMETHASONE 4 MG TABLET PO SCH ×3 (13:05→23:20)
[2020-04-06] MEDS ORDERED: TRIAMCINOLONE ACETONIDE 0.1% CREAM 15 GM TOP PRN (19:28)
--- NOTE | 2020-04-06 19:38 | PDOC PROGRESS REPORT ---
Subjective Progress Note for:: 04/06/20 Subjective:: Patient is a 49-year-old male with a past medical history significant for tobacco dependency with continuous use who was seen in the emergency department 1 week ago for poison jaren; treated with doxycycline and prednisone at that time. He represented with continued generalized contact dermatitis and was admitted 04/05/2020. He is found on morning rounds, he is resting in bed, comfortably, on room air. He reports that he is feeling somewhat better today and is looking forward to discharged home. He denies fever, chills, chest pain, palpitations, dyspnea, orthopnea, abdominal pain, nausea vomiting diarrhea. He has no questions or concerns at this time. No concerns per nursing. Reason For Visit: PLANT CONTACT DERMATITIS Physical Exam Vital Signs: Temp Pulse Resp BP Pulse Ox 97.6 F 80 24 H 147/69 H 100 04/06/20 12:25 04/06/20 12:25 04/06/20 12:25 04/06/20 12:25 04/06/20 12:25 Intake & Output 04/05/20 04/06/20 04/07/20 06:59 06:59 06:59 Intake Total 1595 2463 Balance 1595 2463 Weight 104.2 kg 102.7 kg General appearance: PRESENT: no acute distress, well-developed, well-nourished Head exam: PRESENT: atraumatic, normocephalic Eye exam: PRESENT: conjunctiva pink, EOMI, PERRLA. ABSENT: scleral icterus Mouth exam: PRESENT: moist, tongue midline Respiratory exam: PRESENT: clear to auscultation henrry, symmetrical, unlabored. ABSENT: rales, rhonchi, wheezes Cardiovascular exam: PRESENT: RRR, +S1, +S2. ABSENT: diastolic murmur, rubs, systolic murmur Vascular exam: PRESENT: normal capillary refill Extremities exam: PRESENT: full ROM. ABSENT: calf tenderness, clubbing, pedal edema Neurological exam: PRESENT: alert, awake, oriented to person, oriented to place, oriented to time, oriented to situation, CN II-XII grossly intact. ABSENT: motor sensory deficit Psychiatric exam: PRESENT: appropriate affect, normal mood. ABSENT: homicidal ideation, suicidal ideation Skin exam: PRESENT: dry, erythema, intact, warm, other - Generalized plant c ontact dermatitis involving torso, face, neck and all extremities. ABSENT: cyanosis, rash Results Laboratory Results: 04/06/20 04:08 04/06/20 04:08 04/05/20 04/05/20 04/05/20 19:25 20:54 23:03 WBC 20.0 H RBC 5.29 Hgb 16.0 Hct 46.9 MCV 89 MCH 30.3 MCHC 34.2 RDW 14.0 Plt Count 426 Seg Neutrophils % Not Reportable Sodium 135.6 L Potassium 3.9 Chloride 100 Carbon Dioxide 24 Anion Gap 12 BUN 18 Creatinine 1.23 Est GFR ( Amer) > 60 Glucose 128 H Lactic Acid 2.0 Calcium 9.0 Total Bilirubin 1.1 AST 20 Alkaline Phosphatase 97 Total Protein 6.0 L Albumin 3.8 04/06/20 04/06/20 04:08 04:08 WBC 12.5 H RBC 4.78 Hgb 14.6 Hct 42.3 MCV 89 MCH 30.5 MCHC 34.5 RDW 14.0 Plt Count 364 Seg Neutrophils % Sodium 135.8 L Potassium 4.9 D Chloride 109 H Carbon Dioxide 21 L Anion Gap 6 BUN 13 Creatinine 0.80 Est GFR ( Amer) > 60 Glucose 198 H Lactic Acid Calcium 8.4 Total Bilirubin AST Alkaline Phosphatase Total Protein Albumin Assessment and Plan - Diagnosis (1) Plant irritant contact dermatitis Is this a current diagnosis for this admission?: Yes Plan: Patient is admitted to the medical floor. Keflex 500 mg every 6 hours for some erythema to right anterior thigh concerning for early cellulitis. Initially placed on Decadron 4 mg q6 hrs; will transition to p.o. prednisone (as patient is self pay and prednisone therapy is more affordable) with slight dose reduction today. Start prednisone 40 mg q12 Triamcinolone cream 3 times daily as needed. Not to face. Eucerin cream daily to dry/chapped areas. Benadryl as needed. Pepcid twice daily. (2) Leukocytosis, unspecified Qualifiers: Leukocytosis type: unspecified Qualified Code(s): D72.829 - Elevated white blood cell count, unspecified Is this a current diagnosis for this admission?: Yes Plan: Improved; WBC is 25.7-> 20-> 12.5. Blood cultures are pending. Potentially related to steroid use for treatment of contact dermatitis. However, the patient does have patchy erythema to his right anterior thigh concerning for early cellulitis. P.o. Keflex. Remaining management of the above. Follow-up CBC. (3) Pruritus Is this a current diagnosis for this admission?: Yes Plan: Benadryl as needed. Ice/cool compresses; no hot showers. Remaining management as above. (4) Tobacco use disorder, continuous Is this a current diagnosis for this admission?: Yes Plan: Smoking cessation encouraged. Nicotine replacement therapies provided. - Time Time Spent with patient: 25-34 minutes Medications reviewed and adjusted accordingly: Yes Anticipated Discharge Disposition: Home, Self Care Anticipated Discharge Timeframe: within 24 hours
[2020-04-06] MEDS: CEPHALEXIN 500 MG CAPSULE PO SCH (23:20)
[2020-04-07] MEDS: HEPARIN SOD (PORCINE) 5,000 UNIT/ML 1 ML VIAL SUBCUT SCH (05:45)
[2020-04-07] MEDS: DEXAMETHASONE 4 MG TABLET PO SCH (05:46)
[2020-04-07] MEDS: CEPHALEXIN 500 MG CAPSULE PO SCH (05:46)
[2020-04-07 06:45] LABS: HEMOGLOBIN 13.3 g/dL (13.5-17.0); MEAN CORPUSCULAR HEMOGLOBIN 30.2 pg (27.0-33.4); MEAN CORPUSCULAR HGB CONC 34.1 g/dL (32.0-36.0); MEAN CORPUSCULAR VOLUME 89 fl (80-97); PLATELET COUNT 356 10^3/uL (150-450); RED BLOOD COUNT 4.39 10^6/uL (4.35-5.55); RED CELL DISTRIBUTION WIDTH 14.4 % (11.5-14.0); WHITE BLOOD COUNT 20.2 10^3/uL (4.0-10.5)
[2020-04-07 09:38] VITALS: BP 134/80
[2020-04-07] MEDS ORDERED: MINERAL OIL/PETROLATUM,WHITE CREAM 114 GM TP SCH (10:00)
[2020-04-07] MEDS ORDERED: PREDNISONE 20 MG TABLET PO SCH (10:00)
[2020-04-07] MEDS: FAMOTIDINE 20 MG TABLET PO SCH (10:03)
[2020-04-07] MEDS: DOXEPIN HCL 25 MG CAPSULE PO SCH (10:03)
[2020-04-07] MEDS: DOCUSATE SODIUM 100 MG CAPSULE PO SCH (10:03)
--- NOTE | 2020-04-07 10:58 | PDOC DISCHARGE SUMMARY ---
Impression - Admit/DC Date/PCP Admission Date/Primary Care Provider: 04/05/20 22:35 Discharge Date: 04/07/20 - Discharge Diagnosis (1) Plant irritant contact dermatitis Is this a current diagnosis for this admission?: Yes (2) Leukocytosis, unspecified Is this a current diagnosis for this admission?: Yes (3) Pruritus Is this a current diagnosis for this admission?: Yes (4) Tobacco use disorder, continuous Is this a current diagnosis for this admission?: Yes - Additional Information Resuscitation Status: Full Code Discharge Diet: Regular Discharge Activity: Activity As Tolerated, Balance Activity w/Rest Prescriptions: Triamcinolone Acetonide [Aristocort 0.1% Cream] 1 applic TOP TIDP PRN #1 tube PRN Reason: Prednisone [Deltasone 20 mg Tablet] 20 mg PO ASDIR PRN #20 tablet PRN Reason: Prednisone [Deltasone 20 mg Tablet] 20 mg PO ASDIR #20 tablet Cephalexin Monohydrate [Keflex 500 mg Capsule] 500 mg PO Q6 #20 capsule Nicotine [Nicoderm 21 mg/24 Hr Transderm Patch] 1 each TD DAILYP PRN #30 patch.td24 PRN Reason: Home Medications: Acetaminophen [Tylenol 325 mg Tablet] 650 mg PO Q4HP PRN tablet 04/07/20 Cephalexin Monohydrate [Keflex 500 mg Capsule] 500 mg PO Q6 #20 capsule 04/07/20 Diphenhydramine HCl [Benadryl 25 mg Capsule] 25 mg PO Q6HP PRN capsule 04/07/20 Mineral Oil/Petrolatum,White [Eucerin Cream 114 gm] 1 applic TP DAILY jar 04/07/20 Nicotine [Nicoderm 21 mg/24 Hr Transderm Patch] 1 each TD DAILYP PRN #30 patch.td24 04/07/20 Prednisone [Deltasone 20 mg Tablet] 20 mg PO ASDIR #20 tablet 04/07/20 Prednisone [Deltasone 20 mg Tablet] 20 mg PO ASDIR PRN #20 tablet 04/07/20 Triamcinolone Acetonide [Aristocort 0.1% Cream] 1 applic TOP TIDP PRN #1 tube 04/07/20 History of Present Illiness History of Present Illness: Per H&P by Dr. Meade: YOVANNY LÓPEZ is a 49 year old male who presented emergency room with a one-week history of a poison jaren rash. 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 The rash is extremely pruritic and is not improving despite treatment with oral and topical steroid preparations which he is received on previous visits. He denies other associated or accompanying signs and symptoms. He denies prior similar episodes. He has not identified any additional aggravating or ameliorating factors for his rash. In the emergency room he was noted to have an extensive rash of atopic dermatitis with areas of weeping and crusting. He was further noted to have a leukocytosis of 25,000 with 1% bands that was so concerning to the emergency room physician that she demanded that he be admitted for observation. Patient was subsequently admitted to observation status for further evaluation and treatment. Hospital Course Hospital Course: (1) Plant irritant contact dermatitis Improved. Patient was admitted to the medical floor. Keflex 500 mg every 6 hours for some erythema to right anterior thigh concerning for early cellulitis. Initially placed on Decadron 4 mg q6 hrs; have transitioned to p.o. prednisone (as patient is self pay and prednisone therapy is more affordable) with slight dose reduction today. Continue 12 day prednisone taper. Triamcinolone cream 3 times daily as needed. Not to face. Eucerin cream daily to dry/chapped areas. Benadryl as needed. (2) Leukocytosis, unspecified WBC is 25.7-> 20-> 12.5-> 20 Blood cultures are negative at 24 hours Potentially related to steroid use for treatment of contact dermatitis. Continue p.o. Keflex. Remaining management of the above. Recommend repeat CBC by PCP at follow up appointment. (3) Pruritus Benadryl as needed. Ice/cool compresses; no hot showers. Remaining management as above. (4) Tobacco use disorder, continuous Smoking cessation encouraged. Nicotine replacement therapies provided. Physical Exam Vital Signs: Temp Pulse Resp BP Pulse Ox 97.7 F 67 20 134/80 H 98 04/07/20 08:00 04/07/20 08:00 04/07/20 08:00 04/07/20 08:00 04/07/20 08:00 Intake & Output 04/06/20 04/07/20 04/08/20 06:59 06:59 06:59 Intake Total 1595 2943 Balance 1595 2943 Weight 104.2 kg 103.2 kg General appearance: PRESENT: no acute distress, cooperative, well-developed, well-nourished Head exam: PRESENT: atraumatic, normocephalic Eye exam: PRESENT: conjunctiva pink, EOMI, PERRLA. ABSENT: scleral icterus Mouth exam: PRESENT: moist, tongue midline Teeth exam: PRESENT: poor dentation Respiratory exam: PRESENT: clear to auscultation henrry, symmetrical, unlabored. ABSENT: rales, rhonchi, wheezes Cardiovascular exam: PRESENT: RRR. ABSENT: diastolic murmur, rubs, systolic murmur Pulses: PRESENT: normal dorsalis pedis pul Vascular exam: PRESENT: normal capillary refill Extremities exam: PRESENT: full ROM. ABSENT: calf tenderness, clubbing, pedal edema Neurological exam: PRESENT: alert, awake, oriented to person, oriented to place, oriented to time, oriented to situation, CN II-XII grossly intact. ABSENT: jeff r sensory deficit Psychiatric exam: PRESENT: appropriate affect, normal mood. ABSENT: homicidal ideation, suicidal ideation Skin exam: PRESENT: dry, warm, other - Generalized plant contact dermatitis involving torso, face, neck and all extremities;p significantly improved. ABSENT: cyanosis, intact, rash Results Laboratory Results: WBC 20.2 10^3/uL (4.0-10.5) H 04/07/20 05:23 RBC 4.39 10^6/uL (4.35-5.55) 04/07/20 05:23 Hgb 13.3 g/dL (13.5-17.0) L 04/07/20 05:23 Hct 39.0 % (37.9-51.0) 04/07/20 05:23 MCV 89 fl (80-97) 04/07/20 05:23 MCH 30.2 pg (27.0-33.4) 04/07/20 05:23 MCHC 34.1 g/dL (32.0-36.0) 04/07/20 05:23 RDW 14.4 % (11.5-14.0) H 04/07/20 05:23 Plt Count 356 10^3/uL (150-450) 04/07/20 05:23 Lymph % (Auto) Not Reportable 04/05/20 23:03 [place] % (Auto) Not Reportable 04/05/20 23:03 Eos % (Auto) Not Reportable 04/05/20 23:03 Baso % (Auto) Not Reportable 04/05/20 23:03 Absolute Neuts (auto) Not Reportable 04/05/20 23:03 Absolute Lymphs (auto) Not Reportable 04/05/20 23:03 Absolute Monos (auto) Not Reportable 04/05/20 23:03 Absolute Eos (auto) Not Reportable 04/05/20 23:03 Absolute Basos (auto) Not Reportable 04/05/20 23:03 Total Counted 100 04/05/20 23:03 Seg Neutrophils % Not Reportable 04/05/20 23:03 Seg Neuts % (Manual) 86 % (42-78) H 04/05/20 23:03 Band Neutrophils % 1 % (3-5) L 04/05/20 17:45 Lymphocytes % (Manual) 3 % (13-45) L 04/05/20 23:03 Monocytes % (Manual) 3 % (3-13) 04/05/20 23:03 Eosinophils % (Manual) 8 % (0-6) H 04/05/20 23:03 Basophils % (Manual) 0 % (0-2) 04/05/20 23:03 Abs Neuts (Manual) 17.2 10^3/uL (1.7-8.2) H 04/05/20 23:03 Abs Lymphs (Manual) 0.6 10^3/uL (0.5-4.7) 04/05/20 23:03 Abs Monocytes (Manual) 0.6 10^3/uL (0.1-1.4) 04/05/20 23:03 Absolute Eos (Manual) 1.6 10^3/uL (0.0-0.6) H 04/05/20 23:03 Abs Basophils (Manual) 0.0 10^3/uL (0.0-0.2) 04/05/20 23:03 Platelet Comment ADEQUATE 04/05/20 23:03 Poikilocytosis SLIGHT 04/05/20 23:03 Anisocytosis SLIGHT 04/05/20 23:03 Tear Drop Cells SLIGHT 04/05/20 23:03 Sodium 135.8 mmol/L (137-145) L 04/06/20 04:08 Potassium 4.9 mmol/L (3.6-5.0) D 04/06/20 04:08 Chloride 109 mmol/L (98-107) H 04/06/20 04:08 Carbon Dioxide 21 mmol/L (22-30) L 04/06/20 04:08 Anion Gap 6 (5-19) 04/06/20 04:08 BUN 13 mg/dL (7-20) 04/06/20 04:08 Creatinine 0.80 mg/dL (0.52-1.25) 04/06/20 04:08 Est GFR ( Amer) > 60 (>60) 04/06/20 04:08 Est GFR (Non-Af Amer) Cancelled 04/05/20 17:45 Est GFR (MDRD) Non-Af > 60 (>60) 04/06/20 04:08 Glucose 198 mg/dL (75-110) H 04/06/20 04:08 Lactic Acid 2.0 mmol/L (0.7-2.1) 04/05/20 20:54 Calcium 8.4 mg/dL (8.4-10.2) 04/06/20 04:08 Total Bilirubin 1.1 mg/dL (0.2-1.3) 04/05/20 19:25 Direct Bilirubin 0.2 mg/dL (0.0-0.4) 04/05/20 19:25 Neonat Total Bilirubin Not Reportable 04/05/20 19:25 Neonat Direct Bilirubin Not Reportable 04/05/20 19:25 Neonat Indirect Bili Not Reportable 04/05/20 19:25 AST 20 U/L (17-59) 04/05/20 19:25 ALT 16 U/L (<50) 04/05/20 19:25 Alkaline Phosphatase 97 U/L (38-126) 04/05/20 19:25 Total Protein 6.0 g/dL (6.3-8.2) L 04/05/20 19:25 Albumin 3.8 g/dL (3.5-5.0) 04/05/20 19:25 EGFR Cancelled 04/05/20 17:45 Stroke Is this a Stroke Patient?: No Acute Heart Failure Is this a Heart Failure Patient?: No
== END 2020-04-07 11:23 | disposition home or self-care (01) ==
LOC: ER 16:29 → EH 22:35 → 4W 04-06 08:12
PROVIDERS: ADMIT Emergency Medicine; ATTEND Registered Nurse
DX: L24.7 Irritant contact dermatitis due to plants, except food (principal); D72.829 Elevated white blood cell count, unspecified; L29.9 Pruritus, unspecified; F17.210 Nicotine dependence, cigarettes, uncomplicated; E86.0 Dehydration; Z59.0 Homelessness
CPT/HCPCS: 99285; 96374; 96375; 36415 ×3; 87040; 83605; 85025; 85027 ×2; 80048; 80053; 99406; G0378 ×4; J1644 ×2; J1100 ×2; J8540 ×2; J1200; J3490 ×5; J1885; J7512; J7121; J7030 ×2

== ENCOUNTER 2020-04-17 09:32 | Emergency (ER) | payer SELFPAY ==
[2020-04-17] MEDS ORDERED: METHYLPREDNISOLONE INJ 40 MG/1 ML SDV IV ONE ×2 (10:48→14:15)
[2020-04-17] MEDS ORDERED: DIPHENHYDRAMINE HCL 50 MG/ML VIAL IV ONE ×2 (10:48→14:15)
--- NOTE | 2020-04-17 10:48 | ER Document Report ---
ED Medical Screen (RME) - General Chief Complaint: Rash Stated Complaint: REVISIT/RASH Time Seen by Provider: 04/17/20 10:43 Notes: Patient is a 49-year-old male who presents emergency department for a chief complaint of a rash. Patient was exposed to poison jaren on 03/24/2020. Patient was given triamcinolone cream and clindamycin. He was then sent home. He then returned on 04/05 and was admitted to the hospital. 2 days later, he was disch arged home. He states that when he went home he continued his medications as prescribed, but states that the rash got worse. Exam: Erythema noted to extremities, consistent with poison jaren rash. I have greeted and performed a rapid initial assessment of this patient. A comprehensive ED assessment and evaluation of the patient, analysis of test results and completion of medical decision making process will be conducted by an additional ED providers. TRAVEL OUTSIDE OF THE [place] IN LAST 30 DAYS: No - Related Data Allergies/Adverse Reactions: ampicillin [Ampicillin] Allergy (Verified 04/17/20 10:43) Past Medical History - Past Medical History Cardiac Medical History: Denies: Hx Atrial Fibrillation, Hx Coronary Artery Disease, Hx DVT, Hx Heart Attack, Hx Hypercholesterolemia, Hx Hypertension, Hx Pulmonary Embolism Pulmonary Medical History: Denies: Hx Asthma, Hx COPD Neurological Medical History: Denies: Hx Seizures Endocrine Medical History: Denies: Hx Diabetes Mellitus Type 1, Hx Diabetes Mellitus Type 2, Hx Hyperthyroidism, Hx Hypothyroidism GI Medical History: Denies: Hx Cirrhosis, Hx Crohn's Disease, Hx Gastroesophageal Reflux Disease, Hx Hepatitis, Hx Ulcerative Colitis Musculoskeltal Medical History: Denies Hx Arthritis, Denies Hx Fibromyalgia, Denies Hx Gout Skin Medical History: Denies Hx Eczema, Denies Hx Psoriasis Psychiatric Medical History: Denies: Hx Depression Infectious Medical History: Denies: Hx Hepatitis Past Surgical History: Reports: Hx Orthopedic Surgery - bilat ankle - Immunizations Hx Diphtheria, Pertussis, Tetanus Vaccination: Yes Physical Exam - Vital signs Vitals: Temp Pulse Resp BP Pulse Ox 97.9 F 99 18 151/85 H 98 04/17/20 09:36 04/17/20 09:36 04/17/20 09:36 04/17/20 09:36 04/17/20 09:36 Course - Vital Signs Vital signs: Temp Pulse Resp BP Pulse Ox 97.9 F 99 18 151/85 H 98 04/17/20 09:36 04/17/20 09:36 04/17/20 09:36 04/17/20 09:36 04/17/20 09:36
[2020-04-17] MEDS ORDERED: NORMAL SALINE 1000 ML 1,000 ML IV ONE (10:49)
[2020-04-17] MEDS ORDERED: CLINDAMYCIN 300 MG/D5W RTU 300 MG/50 ML RTUPB IV ONE ×2 (10:50→14:15)
[2020-04-17 11:57] LABS: HEMOGLOBIN 15.4 g/dL (13.5-17.0); MEAN CORPUSCULAR HEMOGLOBIN 31.1 pg (27.0-33.4); MEAN CORPUSCULAR HGB CONC 34.3 g/dL (32.0-36.0); MEAN CORPUSCULAR VOLUME 91 fl (80-97); PLATELET COUNT 329 10^3/uL (150-450); RED BLOOD COUNT 4.96 10^6/uL (4.35-5.55); WHITE BLOOD COUNT 18.4 10^3/uL (4.0-10.5)
[2020-04-17 12:22] LABS: ALBUMIN 3.8 g/dL (3.5-5.0); ALKALINE PHOSPHATASE 81 U/L (38-126); ANION GAP 7 (5-19); ASPARTATE AMINO TRANSFERASE 19 U/L (17-59); BILIRUBIN,DIRECT 0.3 mg/dL (0.0-0.4); BILIRUBIN,TOTAL 1.6 mg/dL (0.2-1.3); BLOOD UREA NITROGEN 18 mg/dL (7-20); CALCIUM 9.3 mg/dL (8.4-10.2); CARBON DIOXIDE 27 mmol/L (22-30); CHLORIDE 103 mmol/L (98-107); GLUCOSE 102 mg/dL (75-110); POTASSIUM 4.3 mmol/L (3.6-5.0); TOTAL PROTEIN 6.1 g/dL (6.3-8.2)
[2020-04-17 12:29] LABS: ABSOLUTE LYMPHOCYTES# (MANUAL) 2.6 10^3/uL (0.5-4.7); ABSOLUTE MONOCYTES # (MANUAL) 0.9 10^3/uL (0.1-1.4); BASOPHILS % (MANUAL) 0 % (0-2); EOSINOPHILS % (MANUAL) 9 % (0-6); LYMPHOCYTES % (MANUAL) 14 % (13-45); MONOCYTES % (MANUAL) 5 % (3-13); SEGMENTED NEUTROPHILS % (MAN) 72 % (42-78); TOTAL CELLS COUNTED 100
[2020-04-17 12:32] LABS: ANISOCYTOSIS SLIGHT
[2020-04-17 12:33] LABS: PLATELET COMMENT ADEQUATE
[2020-04-17] MEDS ORDERED: DEXAMETHASONE SOD PHOS INJ 10 MG/1 ML VIAL IM ONE (14:20)
[2020-04-17] MEDS ORDERED: FAMOTIDINE 20 MG TABLET PO ONE (14:20)
[2020-04-17] MEDS ORDERED: HYDROXYZINE HCL INJ 50 MG/1 ML VIAL IM ONE (14:21)
[2020-04-17] MEDS ORDERED: SULFAMETHOXAZOLE/TRIMETHOPRIM 800-160 MG TABLET PO ONE (14:21)
--- NOTE | 2020-04-17 14:26 | ER Document Report ---
ED General - General Chief Complaint: Rash Stated Complaint: REVISIT/RASH Time Seen by Provider: 04/17/20 10:43 Mode of Arrival: Ambulatory Information source: Patient Notes: Patient is a 49-year-old male coming in today for evaluation of contact dermatitis. Apparently around the middle of the month he came in initially for exposure to poison jaren with an extensive rash. Apparently it was quite an impressive presentation and he was admitted in observation status and received IV antihistamines, steroids, antibiotics. He was discharged home on meds. He states that his symptoms had improved. He finished all the meds that were indicated and now he notes that the rash has come back. He is not having any kind of oropharyngeal involvement. Handling secretions well. No shortness of breath. He has no history of anaphylaxis. TRAVEL OUTSIDE OF THE [place] IN LAST 30 DAYS: No - Related Data Allergies/Adverse Reactions: ampicillin [Ampicillin] Allergy (Verified 04/17/20 10:43) Home Medications: BENADRYL Past Medical History - Social History Smoking Status: Current Every Day Smoker Chew tobacco use (# tins/day): No Frequency of alcohol use: None Drug Abuse: None Family History: DM, Hypertension. denies: CAD, Malignancy Patient has homicidal ideation: No - Past Medical History Cardiac Medical History: Denies: Hx Atrial Fibrillation, Hx Coronary Artery Disease, Hx DVT, Hx Heart Attack, Hx Hypercholesterolemia, Hx Hypertension, Hx Pulmonary Embolism Pulmonary Medical History: Denies: Hx Asthma, Hx COPD Neurological Medical History: Denies: Hx Seizures Endocrine Medical History: Denies: Hx Diabetes Mellitus Type 1, Hx Diabetes Mellitus Type 2, Hx Hyperthyroidism, Hx Hypothyroidism GI Medical History: Denies: Hx Cirrhosis, Hx Crohn's Disease, Hx Gastroesophageal Reflux Disease, Hx Hepatitis, Hx Ulcerative Colitis Musculoskeletal Medical History: Denies Hx Arthritis, Denies Hx Fibromyalgia, Denies Hx Gout Skin Medical History: Denies Hx Eczema, Denies Hx Psoriasis Psychiatric Medical History: Denies: Hx Depression Infectious Medical History: Denies: Hx Hepatitis Past Surgical History: Reports: Hx Orthopedic Surgery - bilat ankle - Immunizations Hx Diphtheria, Pertussis, Tetanus Vaccination: Yes Review of Systems - Review of Systems Notes: Constitutional: No fevers. No chills. EENT: No eye redness. No eye pain. No ear pain. No sore throat. Cardiovascular: No chest pain. No palpitations. Respiratory: No cough. No shortness of breath. No respiratory distress. Gastrointestinal: No abdominal pain. No nausea, vomiting, or diarrhea. Genitourinary: Atraumatic. No lesions. No pain. No discharge. Musculoskeletal: Atraumatic. No swelling. No deformities. Skin: +rash Lymphatic: No swollen lymph nodes. Neurologic: No headache. No syncope. Psychiatric: No suicidal or homicidal ideation. Physical Exam - Vital signs Vitals: Temp Pulse Resp BP Pulse Ox 97.9 F 99 18 151/85 H 98 04/17/20 09:36 04/17/20 09:36 04/17/20 09:36 04/17/20 09:36 04/17/20 09:36 - Notes Notes: General: Well-developed, well-nourished. In no acute distress. Non-toxic appearing. Patient looks uncomfortable Cardiac: Well-perfused. Regular rate and rhythm. No murmurs, rubs, or gallops. Pulmonary: No respiratory distress. No cyanosis. Bilateral lung [place] are clear to auscultation. Abdominal: Non-distended. Non-rigid. Bowels sounds are present in all four quadrants. No guarding or rebound. HEENT: Head is atraumatic. Conjunctivae not reddened. No tearing. PERRL. EOMI. Orbits atraumatic. No periorbital swelling or erythema. Oropharynx is without erythema, swelling, or exudates. Neck: Supple. No adenopathy. No meningismus. Dermatologic: Warm with good turgor. No rash. Atraumatic. Diffuse erythematous rash with excoriations. Some yellowish crusting on the lesions that are actively draining. Chest: Atraumatic. No chest wall tenderness to palpation. Musculoskeletal: Moves all extremities well. No range of motion deficits. no muscular or joint tenderness. No paraspinal muscle tenderness. no midline spinal tenderness or step-off. Genitourinary: Examination deferred Neurologic: No gross neurologic deficits. Psychiatric: Normal mood. Course - Re-evaluation Re-evalutation: 04/17/20 14:24 The patient clearly has a severe case of contact dermatitis however he has not in extremes. I think he would probably benefit from dermatology to see him if possible. We will start with some IM Vistaril and dexamethasone here. We will send him home on dexamethasone, Vistaril, and Pepcid. We will also give him some Bactrim DS to cover for the secondary skin infection. Will refer to Dr. Nida sanchez as an outpatient for further evaluation and management. - Vital Signs Vital signs: Temp Pulse Resp BP Pulse Ox 97.9 F 99 18 151/85 H 98 04/17/20 10:43 04/17/20 09:36 04/17/20 09:36 04/17/20 09:36 04/17/20 09:36 - Laboratory Result Diagrams: 04/17/20 11:14 04/17/20 11:14 Laboratory results interpreted by me: 04/17/20 04/17/20 11:14 11:14 WBC 18.4 H RDW 15.0 H Eosinophils % (Manual) 9 H Abs Neuts (Manual) 13.2 H Absolute Eos (Manual) 1.7 H Sodium 136.9 L Total Bilirubin 1.6 H Total Protein 6.1 L Discharge - Discharge Clinical Impression: Elevated blood pressure reading Contact dermatitis Qualifiers: Contact dermatitis type: irritant Contact dermatitis trigger: non-food plants Qualified Code(s): L24.7 - Irritant contact dermatitis due to plants, except food Condition: Good Disposition: HOME, SELF-CARE Instructions: Contact Dermatitis ([facility]) Prescriptions: Hydroxyzine Pamoate [Vistaril 50 mg Capsule] 50 mg PO Q6HP PRN 7 Days #28 capsu le PRN Reason: Itching Sulfamethoxazole/Trimethoprim [Bactrim Ds Tablet] 1 each PO BID 10 Days #20 tablet Dexamethasone [Decadron 4 mg Tablet] 4 mg PO DAILY 7 Days #7 tablet Famotidine [Pepcid 20 mg Tablet] 20 mg PO BID 7 Days #14 tablet Forms: Elevated Blood Pressure, Return to Work Referrals: JOSE CADET MD [COMMUNITY BASED STAFF] - 04/19/20
[2020-04-17 15:51] VITALS: BP 145/78
== END 2020-04-17 15:48 | disposition home or self-care (01) ==
LOC: ER 09:32
DX: L24.7 Irritant contact dermatitis due to plants, except food (principal); L08.9 Local infection of the skin and subcutaneous tissue, unspecified; R03.0 Elevated blood-pressure reading, without diagnosis of hypertension; F17.200 Nicotine dependence, unspecified, uncomplicated; Z79.899 Other long term (current) drug therapy; Z88.0 Allergy status to penicillin; Z82.49 Family history of ischemic heart disease and other diseases of the circulatory system
CPT/HCPCS: 99284; 96372; 36415; 85025; 80053; J3410; J1100